=== PATIENT | male | born 1995 | race Caucasian/White ===

== ENCOUNTER 2016-11-29 10:27 | Emergency (ER) | payer OTHER ==
[2016-11-29 10:35] VITALS: BP 118/38
--- NOTE | 2016-11-29 11:11 | RAD ---
HISTORY: Laceration COMPARISONS: None VIEWS: 3, Frontal, lateral, and oblique views of the second digit of the left hand FINDINGS: BONE DENSITY: Normal. BONES: There is no displaced fracture. JOINTS: There is no arthropathy. ALIGNMENT: There is no dislocation. SOFT TISSUES: There is soft tissue irregularity consistent with history of laceration OTHER FINDINGS: None. IMPRESSION: NO ACUTE OSSEOUS INJURY. IF SYMPTOMS PERSIST, RECOMMEND REPEAT IMAGING.
[2016-11-29] MEDS ORDERED: Tetanus-Diptheria Toxoids* 0.5 ML SYRINGE IM ONE (11:47)
--- NOTE | 2016-11-29 11:50 | ED ---
Upper Extremity Pain - HPI Summary HPI Summary: Rt hand dominant pt here w/ Lt index finger injury around 10am. Was using a chop saw and hit his finger - this chopped part of his finger off. Bleeding. Sore. Denies numbness, weakness. Last tetanus vaccine 7 years ago. Worker's comp injury. - History of Current Complaint Chief Complaint: EDLacSutureRecheck Stated Complaint: LT HAND / FINGER LAC Time Seen by Provider: 11/29/16 11:13 Hx Obtained From: Patient - Allergies/Home Medications Allergies/Adverse Reactions: Allergies Allergy/AdvReac Type Severity Reaction Status Date / Time No Known Allergies Allergy Verified 11/29/16 11:01 PMH/Surg Hx/FS Hx/Imm Hx Previously Healthy: Yes Endocrine/Hematology History: Denies: Hx Anticoagulant Therapy, Hx Blood Disorders, Autoimmune Disease Respiratory History: Reports: Hx Asthma Infectious Disease History: No Infectious Disease History: Denies: Traveled Outside the in Last 30 Days - Social History Occupation: Employed Full-time - summer job, construction Lives: With Family - staying with girlfriend's grandmother this summer - lives in [place] Alcohol Use: None Hx Substance Use: No Substance Use Type: Reports: None Smoking Status (MU): Never Smoked Tobacco Review of Systems Negative: Chest Pain Negative: Shortness Of Breath Positive: Nausea - feels shaky from seeing injury - only ate banana this morning. Negative: Vomiting Positive: no symptoms reported Positive: Myalgia. Negative: Decreased ROM Skin: Other - see HPI Neurological: Negative Positive: Anxious All Other Systems Reviewed And Are Negative: Yes Physical Exam Triage Information Reviewed: Yes Vital Signs On Initial Exam: Initial Vitals Temp Pulse Resp BP Pulse Ox 97.9 F 79 20 118/38 100 11/29/16 10:28 11/29/16 10:28 11/29/16 10:28 11/29/16 10:28 11/29/16 10:28 Vital Signs Reviewed: Yes Appearance: Positive: Well-Appearing, Well-Nourished, Pain Distress - mild pallor, shaking at times Skin: Positive: Warm - lateral aspect of Lt index finger tip is missing (jagged nail and tissue edges) - bleeding controlled - no bone involvement - clean wound , no debris Eyes: Positive: Normal, EOMI, Conjunctiva Clear ENT: Positive: Hearing grossly normal Respiratory/Lung Sounds: Positive: Breath Sounds Present Cardiovascular: Positive: Normal, Pulses are Symmetrical in both Upper and Lower Extremities - cap refill < 2 secs Musculoskeletal: Positive: Normal, Strength/ROM Intact Neurological: Positive: Normal, Sensory/Motor Intact, Alert, Oriented to Person Place, Time, CN Intact II-III Psychiatric: Positive: Normal - Patricia Coma Scale Coma Scale Total: 15 Procedures - Laceration/Wound Repair 1 Location: upper extremity - Lt index finger, distal tip Description: Irregular Anesthesia: Digital, Marcaine - 3cc Length, Depth and Shape: 5mm area Betadine Prep?: No Irrigated w/ Saline (ccs): 100 Laceration/Wound Explored: clean Layer Closure?: No Sterile Dressing Applied?: Yes - xeroform dressing applied with gauze and coban (gentle pressure) Diagnostics - Vital Signs Vital Signs Temp Pulse Resp BP Pulse Ox 11/29/16 11:01 97.9 F 79 20 118/38 100 11/29/16 10:28 97.9 F 79 20 118/38 100 - Laboratory Lab Statement: Any lab studies that have been ordered have been reviewed, and results considered in the medical decision making process. Re-Evaluation - Re-Evaluation First Eval Change: Improved Course/Dx - Diagnoses Provider Diagnoses: Avulsion, finger tip Discharge - Discharge Plan Condition: Stable Disposition: HOME Prescriptions: Cephalexin CAP* [Keflex CAP*] 500 mg PO BID #20 cap HYDROcodone/ACETAMIN 5-325 MG* [[place] 5-325 TAB*] 1 tab PO Q6H PRN #20 tab MDD 4 PRN Reason: Pain Patient Education Materials: Skin Avulsion (ED) Forms: *Work Release Referrals: Rocky Contreras [Physician Datawarehouse Developer] - Additional Instructions: You have an avulsion injury of your Left finger tip. Keep dressing in place for next 48 hours and follow-up with hand specialist today or tomorrow for wound assessment/dressing change. Call today to schedule an appointment. In the meantime, rest, ice, and elevate your finger. You may take ibuprofen 600mg every 6 hours with food alternating with norco (a narcotic pain medication ) for breakthrough pain and to help you sleep. Complete antibiotics as directed. *If you develop redness, swelling, streaking, fever, chills, seek medical attention sooner
[2016-11-29] MEDS ORDERED: HYDROcodone/ACETAMIN 5-325 MG* 1 TAB PO ONE (12:12)
== END 2016-11-29 12:26 | disposition home or self-care (01) ==
LOC: ED 10:27
DX: S61.301A Unspecified open wound of left index finger with damage to nail, initial encounter (principal); W29.8XXA Contact with other powered hand tools and household machinery, initial encounter; Y93.9 Activity, unspecified; Y92.9 Unspecified place or not applicable
CPT/HCPCS: 73140; 96372; 99282